=== PATIENT | female | born 1985 | race African-American/Black ===

== ENCOUNTER 2016-12-11 21:43 | Emergency (ER) | payer OTHER ==
[~2016-12-11] VITALS: Ht 170.2 cm; Wt 74.8 kg
[2016-12-11] MEDS ORDERED: ANIMAL CHEWS1 EACH PO (22:50)
--- NOTE | 2016-12-11 22:51 | ED GI/GU/ABDOMINAL COMPLAINT ---
History of Present Illness General Chief Complaint: Abdominal Pain/Flank Pain Stated Complaint: ABD PAIN Source: patient, family Exam Limitations: no limitations Vital Signs & Intake/Output Vital Signs & Intake/Output Vital Signs Date Time Temp Pulse Resp B/P Pulse O2 O2 Flow FiO2 Ox Delivery Rate 12/12 0039 96.6 76 16 125/73 100 Room Air 12/11 2248 Room Air 12/11 2152 97.6 75 18 121/78 99 Room Air ED Intake and Output 12/12 0000 12/11 1200 Intake Total 1000 Output Total 200 Balance 800 Intake, IV 1000 Output, Urine 200 Patient 165 lb Weight Allergies Coded Allergies: No Known Allergies (12/11/16) Triage Note: RECEIVED 31 YO FEMALE C/O SUDDEN ONSET MID ABDOMINAL PAIN, STARTED ABOUT 6 PM THIS EVENING. NO C/O N/V/D. Triage Nurses Notes Reviewed? yes ? N Is pt currently ? No HPI: At approximately 6 PM this evening patient developed epigastric sharp stabbing pain. Patient had not eaten since lunch time and then took a multivitamin on an empty stomach shortly prior to the onset of the pain. Since the pain started it is now migrated to her left flank area. The pain is constant. There are no aggravating or mitigating factors. Patient denies any hematuria or dysuria. Patient rates the pain as 8 out of 10. (ARI SETHI,EDWARD Valle) Reconcile Medications Multivitamin (Animal Chews) 1 EACH TAB.CHEW 1 TAB PO DAILY SUPPLEMENT ( Reported) Omeprazole Magnesium (Prilosec Otc) 20 MG TABLET.DR 1 TAB PO DAILY GASTRITIS Ondansetron (Zofran Odt) 4 MG TAB.RAPDIS 1 TAB SL TID NAUSEA (ITZEL SETHI,TANK Regalado) Past History Travel History Traveled to [place] past 21 day No Medical History Any Pertinent Medical History? none Neurological: NONE EENT: NONE Cardiovascular: NONE Respiratory: NONE Gastrointestinal: NONE Hepatic: NONE Renal: NONE Musculoskeletal: NONE Psychiatric: NONE Endocrine: NONE Cancer(s): NONE Surgical History Surgical History: non-contributory Psychosocial History What is your primary language Grenadian Tobacco Use: Never used ETOH Use: occasional use Illicit Drug Use: denies illicit drug use Family History Hx Contributory? No (ARI SETHI,EDWARD Valle) Review of Systems Review of Systems Constitutional: Reports: no symptoms. EENTM: Reports: no symptoms. Respiratory: Reports: no symptoms. Cardiovascular: Reports: no symptoms. GI: Reports: see HPI, abdominal pain, nausea. Genitourinary: Reports: no symptoms. Musculoskeletal: Reports: no symptoms. Skin: Reports: no symptoms. Neurological/Psychological: Reports: no symptoms. Hematologic/Endocrine: Reports: no symptoms. Immunologic/Allergic: Reports: no symptoms. All Other Systems: Reviewed and Negative (ARI SETHI,EDWARD Valle) Physical Exam Physical Exam General Appearance: well developed/nourished, alert, awake Head: atraumatic, normal appearance Eyes: Bilateral: PERRL, EOMI, other (ANICTERIC). Ears, Nose, Throat, Mouth: hearing grossly normal, DRY MUCUS MEMBRANES Neck: normal inspection, supple, full range of motion Respiratory: normal breath sounds, chest non-tender, no respiratory distress, lungs clear Cardiovascular: regular rate/rhythm, normal peripheral pulses Gastrointestinal: normal bowel sounds, soft, no organomegaly, tenderness ( EPIGASTRIC, RUQ), POSITIVE CHOU'S Back: normal inspection, normal range of motion, NO CVA TENDERNESS Extremities: normal range of motion Neurologic/Psych: no motor/sensory deficits, awake, alert, oriented x 3, normal gait, normal mood/affect Skin: intact, normal color, warm/dry Core Measures ACS in differential dx? No Severe Sepsis Present: No Septic Shock Present: No (ARI SETHI,EDWARD Valle) Progress Differential Diagnosis: biliary colic, cholecystitis, diverticulitis, ectopic , gastritis, hepatitis, ischemic bowel, inflamm bowel dis, intrauterine , kidney stone, peptic ulcer, PUD/GERD, threatened AB, UTI/pyelo Plan of Care: Orders Procedure Date/time Status URINALYSIS 12/11 2249 Complete LIPASE 12/11 2249 Complete HUMAN BETA HCG SCREEN 12/11 2249 Complete COMPREHENSIVE METABOLIC PANEL 12/11 2249 Complete CBC WITHOUT DIFFERENTIAL 12/11 2249 Complete AMYLASE 12/11 2249 Complete Laboratory Tests 12/11/162254: Anion Gap 11, Estimated GFR > 60, BUN/Creatinine Ratio 21.3, Glucose 92, Calcium 10.3 H, Total Bilirubin 0.3, AST 23, ALT 29, Alkaline Phosphatase 60, Total Protein 7.6, Albumin 4.4, Globulin 3.2, Albumin/Globulin Ratio 1.4, Amylase 62, Lipase 176, Total Beta HCG NEGATIVE, CBC w Diff NO MAN DIFF REQ, RBC 5.09, MCV 81.4, MCH 27.0, RDW 13.5, MPV 8.6, Gran % 83.6 H, Lymphocytes % 9.6 L, Monocytes % 5.8, Eosinophils % 0.7, Basophils % 0.3, Absolute Granulocytes 10.2 H, Absolute Lymphocytes 1.2, Absolute Monocytes 0.7 H, Absolute Eosinophils 0.1 , Absolute Basophils 0, PUBS MCHC 33.2 12/11/16 2250: Urine Color YEL, Urine Clarity CLEAR, Urine pH 7.5, Ur Specific [place] 1.010, Urine Protein NEG, Urine Ketones TRACE H, Urine Nitrite NEG, Urine Bilirubin NEG, Urine Urobilinogen 0.2, Ur Leukocyte Esterase NEG, Ur Microscopic EXAM NOT REQUIRED, Urine Hemoglobin NEG, Urine Glucose NEG Initial ED EKG: none Hand-Off Endorsed To: ITZEL SETHI,TANK Regalado Endorsed Time: 2316 Pending: labs (ARI SETHI,EDWARD Valle) Departure Departure Disposition: STILL A PATIENT Condition: Stable Clinical Impression Primary Impression: Upper abdominal pain, unspecified Referrals: UNKNOWN (PCP/Family) Departure Forms: Customer Survey General Discharge Information (ARI SETHI,EDWARD Valle) Departure Prescriptions: Current Visit Scripts Omeprazole Magnesium (Prilosec Otc) 1 TAB PO DAILY #30 TAB Ondansetron (Zofran Odt) 1 TAB SL TID #10 TAB Comments 12/12/16, 0:44.... discussed at length... pt feels better after gi cocktail... discussed ct scan... she wishes to defer and will return if her symptoms recur... prescribed ppi and zofran... advised close follow up. (ITZEL SETHI,TANK Regalado)
[2016-12-11 23:08] LABS: ABSOLUTE BASOPHIL COUNT 0 /CUMM (0.0-0.2); ABSOLUTE EOSINOPHIL COUNT 0.1 /CUMM (0.0-0.7); ABSOLUTE GRANULOCYTE CT 10.2 /CUMM (1.4-6.5); ABSOLUTE LYMPH COUNT 1.2 /CUMM (1.2-3.4); ABSOLUTE MONOCYTE COUNT 0.7 /CUMM (0.10-0.60); BASOPHIL % 0.3 % (0.0-2.0); EOSINOPHIL % 0.7 % (0-5); HEMATOCRIT 41.4 % (37-47); MEAN CORPUSCULAR HGB CONC 33.2 G/DL (33.0-37.0); MEAN CORPUSCULAR VOLUME 81.4 FL (81.0-99.0); MEAN PLATELET VOLUME 8.6 FL (7.4-10.4); PLATELET COUNT 280 /CUMM (130-400); RBC DISTRIBUTION WIDTH 13.5 % (11.5-14.5); RED BLOOD CELL CT 5.09 /CUMM (4.20-5.40); WHITE BLOOD CELL COUNT 12.2 /CUMM (4.8-10.8)
[2016-12-11 23:26] LABS: GRANULOCYTE % 83.6 % (42.2-75.2)
[2016-12-12 00:39] VITALS: BP 125/73
[2016-12-12] MEDS ORDERED: PRILOSEC OTC20 M1 PO (00:43)
[2016-12-12] MEDS ORDERED: ZOFRAN ODT4 M1 SL (00:43)
== END 2016-12-12 00:55 ==
LOC: ERH 21:43
PROVIDERS: Emergency Medicine
DX: R10.13 Epigastric pain (principal)
CPT/HCPCS: 81003; 96374; 96375; J1885; J2405